=== PATIENT | female | born 1995 | race Two or more races ===

== ENCOUNTER 2018-06-25 08:18 | Emergency (ER) | payer MEDICAID ==
[~2018-06-25] VITALS: Ht 160 cm; Wt 89.8 kg
[2018-06-25 08:25] VITALS: BP 107/62
--- NOTE | 2018-06-25 08:25 | NUR ---
ED Nurse Note: PT WALKED IN TO ER TODAY FROM HOME. AOX4. PT C/O FEVER, HEADACHE, AND SORE THROAT X 3 DAYS AGO. ORAL TEMP AT BEDSIDE: 98.8F. PT DENIES COUGH. PT ALSO C/O SOB AT NIGHT WHEN TRYING TO SLEEP. RR22 @ 99% O2SAT ON RA AT BEDSIDE. LUNG SOUNDS CLEAR IN ALL LOBES. NO SIGNS OF RESPIRATORY DISTRESS OR RETRACTIONS NOTED.
--- NOTE | 2018-06-25 09:55 | Emergency Room Report ---
History of Present Illness General Chief Complaint: Flu Like Symptoms Source: Patient Present Illness HPI The patient states she has had sore throat, fatigue, sensation of difficulty breathing and fever for the past 3 days. She denies ear pain. She denies cough or congestion. She denies chest pain. She denies abdominal pain. She denies headache or neck pain. She denies blurry vision. She denies nausea or vomiting. She has no other complaints. She did not get the seasonal influenza vaccination. Allergies: Coded Allergies: No Known Allergies (Unverified , 06/25/18) Patient History Past Medical History: none Past Surgical History: none Social History: Denies: smoking, alcohol use, drug use Last Menstrual Period: 05/22/18 Now: No Reviewed Nursing Documentation: PMH: Agreed; PSxH: Agreed Nursing Documentation-PMH Past Medical History: No Stated History Review of Systems All Other Systems: negative except mentioned in HPI Physical Exam Vital Signs Date Time Temp Pulse Resp B/P (MAP) Pulse Ox O2 Delivery O2 Flow Rate FiO2 06/25/18 08:22 99.0 94 18 106/61 96 06/25/18 08:25 Room Air Sp02 EP Interpretation: reviewed, normal General Appearance: no apparent distress, alert, GCS 15, non-toxic Head: normocephalic, atraumatic Eyes: bilateral eye normal inspection, bilateral eye PERRL ENT: hearing grossly normal, no angioedema, normal voice, uvula midline, moist mucus membranes, pharyngeal erythema Neck: full range of motion, supple/symm/no masses Respiratory: chest non-tender, lungs clear, normal breath sounds, no respiratory distress, no retraction, no accessory muscle use, speaking full sentences Cardiovascular #1: regular rate, rhythm, no edema Gastrointestinal: normal bowel sounds, non tender, soft, non-distended, no guarding, no rebound Rectal: deferred Musculoskeletal: back normal, gait/station normal, normal range of motion, non- tender Neurologic: alert, oriented x3, responsive, motor strength/tone normal, sensory intact, speech normal Psychiatric: judgement/insight normal, memory normal, mood/affect normal, no suicidal/homicidal ideation Skin: normal color, no rash, warm/dry, well hydrated Medical Decision Making Diagnostic Impression: Primary Impression: Pharyngitis Additional Impression: Viral syndrome ER Course This patient has a clinical presentation consistent with pharyngitis/viral syndrome. Physical exam is consistent with a viral etiology, possible influenza , although rapid influenza is negative. There is no evidence of peritonsillar abscess or deep neck abscess. There is no airway edema. Overall, this patient had a very benign examination. The patient only needs supportive care. The patient is instructed to get [id number] lozenges. I will also give the patient Motrin as a pain medication and anti-inflammatory. The patient was given return precautions and followup instructions. influenza A&B negative Last Vital Signs Date Time Temp Pulse Resp B/P (MAP) Pulse Ox O2 Delivery O2 Flow Rate FiO2 06/25/18 08:25 94 22 Room Air 06/25/18 08:25 98.9 107/62 99 Status: improved Disposition: HOME, SELF-CARE Condition: Improved Referrals: [facility]ERRING (PCP) Elvira Rothman DO Jun 25, 2018 09:55
[2018-06-25] MEDS ORDERED: ACETAMINOPHEN500 M3 ORAL (09:59)
[2018-06-25] MEDS ORDERED: IBUPROFEN800 MG ORAL (09:59)
[2018-06-25 10:10] VITALS: BP 109/66
--- NOTE | 2018-06-25 10:11 | NUR ---
ED Nurse Note: PT LAYING PEACEFULLY IN BED IN NAD. AOX4. PRESCRIPTIONS AND DISCHARGE PAPERWORK EXPLAINED TO PT. PT VERBALIZES UNDERSTANDING AND ALL QUESTIONS WERE ANSWERED. PRESCRIPTIONS AND DISCHARGE PAPERWORK GIVEN TO PT AND ID WRISTBAND REMOVED. PT WALKED OUT OF ER WITH STEADY GAIT AND ALL BELONGINGS.
== END 2018-06-25 10:13 | disposition home or self-care (01) ==
LOC: EMR 09:11
DX: J02.9 Acute pharyngitis, unspecified (principal); B34.9 Viral infection, unspecified
CPT/HCPCS: 86710; 99283

== ENCOUNTER 2018-08-28 21:02 | Emergency (ER) | payer MEDICAID ==
[~2018-08-28] VITALS: Ht 160 cm; Wt 87.5 kg
[~2018-08-28 21:02] MED LIST: ACETAMINOPHEN500 M3 ORAL; IBUPROFEN800 MG ORAL
--- NOTE | 2018-08-28 21:33 | NUR ---
ED Nurse Note: pt walked in c/o abscess under L armpit x 2 days states it popped today and started bleeding. Noted red bump with blood and pus drainage. reports pain 6/10. ERMD at the bedside, will cont monitor.
[2018-08-28 21:34] VITALS: BP 114/70
[2018-08-28] MEDS ORDERED: HYDROCODON-ACE1 EA15 ORAL (21:54)
[2018-08-28] MEDS ORDERED: BACTRIM DS TAB1 EAC1 ORAL (21:54)
--- NOTE | 2018-08-28 21:54 | Emergency Room Report ---
History of Present Illness General Chief Complaint: Skin Rash/Abscess Source: Patient Present Illness HPI Is a 23-year-old female with no past medical history. She presents with chief complaint of an abscess to the left axilla. Onset for 2-3 days. Increasing pain. No drainage. No nausea no vomiting. No fever chills. Pain is 8 out of 10. Worse with palpation. Worse with movement of the arm. Similar symptoms several years ago but a drain on its own. No other complaint. Allergies: Coded Allergies: No Known Allergies (Unverified , 06/25/18) Patient History Past Medical History: none, see triage record, old chart reviewed Past Surgical History: none Pertinent Family History: none Social History: Denies: smoking Last Menstrual Period: Now Now: No Immunizations: other Reviewed Nursing Documentation: PMH: Agreed; PSxH: Agreed Nursing Documentation-PMH Past Medical History: No Stated History Review of Systems Eye: Denies: eye pain, blurred vision ENT: Denies: ear pain, nose congestion, throat swelling Respiratory: Denies: cough, shortness of breath Cardiovascular: Denies: chest pain, palpitations Gastrointestinal: Denies: abdominal pain, diarrhea, nausea, vomiting Musculoskeletal: Denies: back pain, joint pain Skin: Denies: rash Neurological: Denies: headache, numbness Endocrine: Denies: increased thirst, increased urine Hematologic/Lymphatic: Denies: easy bruising All Other Systems: negative except mentioned in HPI Physical Exam Vital Signs Date Time Temp Pulse Resp B/P (MAP) Pulse Ox O2 Delivery O2 Flow Rate FiO2 08/28/18 21:24 98.6 96 18 114/70 98 Room Air vitals normal Sp02 EP Interpretation: reviewed, normal General Appearance: well appearing, no apparent distress, alert Head: normocephalic, atraumatic Eyes: bilateral eye PERRL, bilateral eye EOMI ENT: hearing grossly normal, normal pharynx Neck: full range of motion, supple, no meningismus Respiratory: chest non-tender, lungs clear, normal breath sounds Cardiovascular #1: regular rate, rhythm, no murmur Gastrointestinal: normal bowel sounds, non tender, no mass, no organomegaly, no bruit, non-distended Musculoskeletal: back normal, gait/station normal, normal range of motion, other - Left axilla: There indurated and fluctuant area measuring about 3 cm. Small parent drainage Neurologic: alert, oriented x3 Psychiatric: mood/affect normal Skin: warm/dry Procedures Incision and Drainage Incision and Drainage : Consent: Verbal Site: Left axilla Blade Size: 11 I & D Procedure: betadine prep, sterile drapes applied, sterile dressing applied Wound Location: upper extremity Anesthesia: 1% Lidocaine Patient Tolerated: Well Complications: None Progress Area clean with Betadine. Local anesthetic 1% lidocaine without epinephrine. I made a 2 cm incision. There was small amount of purulent discharge. Luckily area broken up and more purulent discharge. Patient to her procedure without a problem. Medical Decision Making Diagnostic Impression: Primary Impression: Abscess of axilla, left ER Course Patient presents with abscess to the left axilla. No evidence of deep infection. No evidence of necrotizing fasciitis. We'll discharge home. Last Vital Signs Date Time Temp Pulse Resp B/P (MAP) Pulse Ox O2 Delivery O2 Flow Rate FiO2 08/28/18 21:34 98.6 96 18 114/70 98 Room Air Status: improved Disposition: HOME, SELF-CARE Condition: Stable Scripts Hydrocodone/Acetaminophen 5-325* (HYDROCODONE/ACETAMINOPHEN 5-325*) 1 Each Tablet 1 TAB ORAL Q6H PRN for For Pain, #10 TAB 0 Refills Prov: Yves Diaz MD 08/28/18 Trimethoprim/Sulfamethoxazole 160/800* (BACTRIM DS TABLET*) 1 Each Tablet 1 TAB ORAL Q12H, #14 TAB 0 Refills Prov: Yves Diaz MD 08/28/18 Patient Instructions: Abscess Additional Instructions: Follow-up in 2 days for recheck. Return if symptom worsen. Yves Diaz MD Aug 28, 2018 21:54
[2018-08-28] MEDS ORDERED: Bactrim-DS 1 tab ORAL ONE (22:00)
[2018-08-28] MEDS ORDERED: HYDROcodone/Acetamin 5/325 tab ORAL ONE (22:00)
--- NOTE | 2018-08-28 22:01 | NUR ---
ER DISCHARGE NOTE: Patient is cleared to be discharged per ERMD, pt is aox4, on room air, with stable vital signs. pt was given dc and prescription instructions, pt was able to verbalize understanding, pt id band removed without complications. pt is able to ambulate with steady gait with mother. pt took all belongings.
--- NOTE | 2018-08-28 22:01 | NUR ---
ED Nurse Note: d/c assessment and intervention done by Jono BARNES.
== END 2018-08-28 22:01 | disposition home or self-care (01) ==
LOC: EMR 21:51
DX: L02.412 Cutaneous abscess of left axilla (principal)
CPT/HCPCS: 10060; 99283; Z7502

== ENCOUNTER 2018-08-30 21:03 | Emergency (ER) | payer MEDICAID ==
[~2018-08-30] VITALS: Ht 160 cm; Wt 68.0 kg
[~2018-08-30 21:03] MED LIST changes: +BACTRIM DS TAB1 EAC1 ORAL; +HYDROCODON-ACE1 EA15 ORAL
[2018-08-30 21:30] VITALS: BP 116/74
--- NOTE | 2018-08-30 21:30 | NUR ---
ED Nurse Note: Pt arrived ED from Home, c/o follow up for left axillary abscess had I &D 2 days ago and Pain 4/10. Pt is A/O X4. Vital signs stable at this time, waitng for orders.
[2018-08-30 21:58] VITALS: BP 115/73
--- NOTE | 2018-08-30 21:58 | NUR ---
ER DISCHARGE NOTE: Patient is cleared to be discharged per Dr. Dubon. Dressing applied to left axillary area. Pt is A/Ox4 on room air with stable vital signs, pt was given dc and prescription instructions, pt was able to verbalize understanding, pt ID band removed. pt is able to ambulate with steady gait and pt took all belongings. Accompanied by her family.
--- NOTE | 2018-08-31 02:20 | Emergency Room Report ---
History of Present Illness General Chief Complaint: Skin Rash/Abscess Source: Patient Present Illness HPI 23-year-old female presents ED for wound check. Status post I&D of left axilla abscess. Was seen 2 days ago here at [facility]. Was subsequently discharged with antibiotics. States that she is overall feeling better. Pain is minimal. States she is compliant with antibiotics. Denies fevers or chills. Denies any drainage. No other aggravating relieving factors. Denies any other associated symptoms Allergies: Coded Allergies: No Known Allergies (Unverified , 06/25/18) Patient History Past Medical History: none Past Surgical History: none Pertinent Family History: none Social History: Denies: smoking, alcohol use, drug use Last Menstrual Period: 08/30/18 Now: No Immunizations: UTD Reviewed Nursing Documentation: PMH: Agreed; PSxH: Agreed Nursing Documentation-PMH Past Medical History: No Stated History Review of Systems All Other Systems: negative except mentioned in HPI Physical Exam Vital Signs Date Time Temp Pulse Resp B/P (MAP) Pulse Ox O2 Delivery O2 Flow Rate FiO2 08/30/18 21:18 97.9 71 12 119/71 98 Room Air Sp02 EP Interpretation: reviewed, normal General Appearance: no apparent distress, alert, GCS 15, non-toxic Head: normocephalic Eyes: bilateral eye normal inspection, bilateral eye PERRL ENT: normal ENT inspection Neck: normal inspection Respiratory: normal inspection Cardiovascular #1: normal inspection Gastrointestinal: normal inspection Rectal: deferred Genitourinary: no CVA tenderness Musculoskeletal: normal inspection Neurologic: alert, oriented x3, responsive, motor strength/tone normal, sensory intact, speech normal Psychiatric: normal inspection Skin: other - L axilla no erythema/induration, no active drainage Lymphatic: normal inspection Medical Decision Making Diagnostic Impression: Primary Impression: Wound check, abscess ER Course Hospital Course 23-year-old F presents to ED for wound check. s/p I&D L axilla abscess Clinical course Patient placed on stretcher. Wound appears clean dry and intact with induration and erythema improved compared to prior visit. No active drainage. Discussed findings with patient. Continue wound care. Continue antibiotics as directed. Warm compresses. Safe for discharge or close outpatient follow-up. We'll provide referrals Diagnosis - encounter for wound re-check, abscess Stable and discharged to home. continue abx as directed. Followup with PMD. Return to ED if any signs of infection develop Last Vital Signs Date Time Temp Pulse Resp B/P (MAP) Pulse Ox O2 Delivery O2 Flow Rate FiO2 08/30/18 21:18 97.9 71 12 119/71 98 Room Air Status: improved Disposition: HOME, SELF-CARE Condition: Stable Referrals: [facility] Patient Instructions: Abscess, [id number] Navin Dubon MD Aug 31, 2018 02:20
== END 2018-08-30 21:58 | disposition home or self-care (01) ==
LOC: EMR 21:56
DX: L02.412 Cutaneous abscess of left axilla (principal); Z48.01 Encounter for change or removal of surgical wound dressing
CPT/HCPCS: 99282